=== PATIENT | male | born 1950 | race Caucasian/White ===

== ENCOUNTER 2025-01-15 02:11 | Emergency (ER) | payer OTHER ==
[~2025-01-15] VITALS: Ht 180.3 cm; Wt 8.2 kg
[2025-01-15 02:42] VITALS: TEMP 98.4
[2025-01-15 03:29] LABS: BASOPHILS % (AUTO) 0.1 % (0.0-2.0); EOSINOPHILS % (AUTO) 0.2 % (1.0-6.0); HEMATOCRIT 46.2 % (41-53); LYMPHOCYTES # (AUTO) 1.1 K/uL (1.0-4.8); LYMPHOCYTES % (AUTO) 11.5 % (22.0-44.0); MEAN CORPUSCULAR HGB CONC 34.6 G/dL (31.0-37.0); MEAN CORPUSCULAR VOLUME 90 fL (80-100); MONOCYTES # (AUTO) 0.8 K/uL (0.1-1.0); MONOCYTES % (AUTO) 8.6 % (2.0-9.0); NEUTROPHILS # (AUTO) 7.8 K/uL (1.8-7.7); NEUTROPHILS % (AUTO) 79.6 % (40.0-70.0); PLATELET COUNT (AUTO) 146 K/uL (150-450); RED BLOOD CELL COUNT(AUTO) 5.16 MIL/uL (4.50-5.90); RED CELL DISTRIBUTION WIDTH 13.4 % (11.5-14.5); WHITE BLOOD COUNT (AUTO) 9.8 K/uL (4.5-11.0)
[2025-01-15 03:30] LABS: ANION GAP 7 mmol/L (8-16); CALCIUM, TOTAL 9.5 mg/dL (8.8-10.5); CARBON DIOXIDE 30 mmol/L (22-29); CHLORIDE 92 mmol/L (98-107); CREATININE 2.42 mg/dL (0.60-1.30); GLOMERULAR FILTR. RATE CALC 26 mL/min (>60); GLUCOSE,RANDOM 128 mg/dL (70-110); SODIUM SERUM 129 mmol/L (136-145); UREA NITROGEN, BLOOD 59 mg/dL (7-18)
[2025-01-15 03:38] LABS: LACTIC ACID 1.8 mmol/L (0.4-2.0)
[2025-01-15 03:44] LABS: TROPONIN I-HIGH SENSITIVITY 92 ng/L (<76)
[2025-01-15 03:53] LABS: ALANINE AMINOTRANSFERASE 235 U/L (12-78); ALBUMIN 3.7 g/dL (3.4-5.0); ALKALINE PHOSPHATASE 71 U/L (46-116); ASPARTATE AMINOTRANSFERASE 549 U/L (15-37); BILIRUBIN,TOTAL 2.5 mg/dL (0.1-1.0); TOTAL PROTEIN, SERUM 7.1 g/dL (6.4-8.2)
[2025-01-15 04:35] LABS: COVID AG,FIA SOURCE NASAL SWAB
[2025-01-15 04:54] LABS: ALCOHOL, BLOOD (SERUM) < 3 mg/dL (0-10)
[2025-01-15] MEDS: SODIUM CHLORIDE 0.9% 1,000 ML IV ONE (05:03)
[2025-01-15 05:18] LABS: SARS-COV2 (COVID) ANTIGEN,FIA Negative (Negative)
[2025-01-15] MEDS: MAGNESIUM SULFATE 2 GM, MVI, ADULT NO.1 WITH VIT K 10 ML, THIAMINE 100 MG, FOLIC ACID 1... IV ONE (05:50)
[2025-01-15] MEDS: THIAMINE 100 MG TABLET PO ONE (05:51)
[2025-01-15 06:35] LABS: TROPONIN I-HIGH SENSITIVITY 83 ng/L (<76)
[2025-01-15 06:40] VITALS: BP 114/61; PULSE 99; RESP 15; O2SAT 97
[2025-01-15 06:56] LABS: GLUCOMETER DEV NAME(LOC) ER.7; GLUCOSE,POINT OF CARE 128 MG/DL (70-110)
== END 2025-01-15 07:28 | disposition short-term general hospital (02) ==
LOC: EMS 02:15
DX: G93.41 Metabolic encephalopathy (principal); N17.9 Acute kidney failure, unspecified; I48.91 Unspecified atrial fibrillation; Z98.890 Other specified postprocedural states; Z88.0 Allergy status to penicillin; Z20.822 Contact with and (suspected) exposure to COVID-19
CPT/HCPCS: 99285; 96365; 70450; 71045; 96361; 96366; 87426; 80048; 80076; 82140; 82962; 83605; 83735; 84484; 85025; 93005; 36415; G0480; J3490 ×2; J3411; J3475; J7030